=== PATIENT | female | born 1955 | race Caucasian/White ===

== ENCOUNTER 2017-07-08 12:57 | Emergency (ER) | payer MEDICAID ==
[~2017-07-08] VITALS: Ht 172.7 cm; Wt 73.5 kg
[~2017-07-08 12:57] MED LIST: CLARITIN; TYLENOL; Z PACK
[2017-07-08 13:01] VITALS: BP 150/85
--- NOTE | 2017-07-08 13:15 | NUR ---
62/F PRESENT TO ER C/O RASH ON UPPER BODY x 2 WEEKS. HX: NONE MEDS: OTC BENADRYL .NOTED RASH ALSO ON CHEST, NO DRAINAGE NOTED.PER PT HER CO WORKER ALSO GOT IT, DENIES N/V/D; SKIN IS PINK/WARM/DRY; AAOX4 WITH EVEN AND STEADY GAIT; LUNGS CLEAR BL; HR EVEN AND REGULAR; PT DENIES ANY FEVER, CP, SOB, OR COUGH AT THIS TIME; PATIENT STATES PAIN OF 4/10 AT THIS TIME FROM SCRATCHING, PATIENT POSITIONED FOR COMFORT; HOB ELEVATED; BEDRAILS UP X2; BED DOWN. ER MD MADE AWARE OF PT STATUS.
--- NOTE | 2017-07-08 14:01 | NUR ---
MD AWARE BP ON THE 150
[2017-07-08 14:05] VITALS: BP 154/90
--- NOTE | 2017-07-08 14:06 | NUR ---
Patient discharged with v/s stable. Written and verbal after care instructions given and explained. Patient alert, oriented and verbalized understanding of instructions. Ambulatory with steady gait. All questions addressed prior to discharge. ID band removed. Patient advised to follow up with PMD. Rx of BENADRYL, PREDNISONE given. Patient educated on indication of medication including possible reaction and side effects. Opportunity to ask questions provided and answered.
== END 2017-07-08 14:06 | disposition home or self-care (01) ==
LOC: MED 12:57
DX: L23.9 Allergic contact dermatitis, unspecified cause (principal); Z90.89 Acquired absence of other organs; Z88.0 Allergy status to penicillin
CPT/HCPCS: 99283

== ENCOUNTER 2022-11-21 10:46 | Emergency (ER) | payer OTHER ==
[~2022-11-21] VITALS: Ht 170.2 cm; Wt 90.7 kg
[2022-11-21 10:51] VITALS: BP 157/91; PULSE 73; RESP 16; TEMP 98.4; O2SAT 98
--- NOTE | 2022-11-21 12:40 | NUR ---
Patient does not wish to proceed with medical care recommended by DR MILAN. Patient given information related to possible complications, up to and including , which could occur as a result of leaving hospital at this time. Patient verbalizes understanding of risks involved leaving against medical advice. Patient LEFT BEFORE SIGNING PAPERWORK
== END 2022-11-21 11:54 | disposition left against medical advice (07) ==
LOC: MED 10:46
DX: H92.01 Otalgia, right ear (principal); H92.02 Otalgia, left ear; Z79.899 Other long term (current) drug therapy; Z88.0 Allergy status to penicillin
CPT/HCPCS: 99282